=== PATIENT | male | born 1985 | race Caucasian/White ===

== ENCOUNTER 2017-10-03 13:22 | Emergency (ER) | payer OTHER ==
[~2017-10-03] VITALS: Ht 165.1 cm; Wt 86.0 kg
[2017-10-03] MEDS ORDERED: ABILIFY (13:40)
[2017-10-03 19:07] VITALS: BP 116/68
== END 2017-10-03 19:07 | disposition home or self-care (01) ==
LOC: ER 13:47
DX: R07.9 Chest pain, unspecified (principal); F31.9 Bipolar disorder, unspecified; F20.9 Schizophrenia, unspecified; Z88.6 Allergy status to analgesic agent
CPT/HCPCS: 71045; 93005; 99284

== ENCOUNTER 2019-03-07 12:31 | Emergency (ER) | payer SELFPAY ==
[~2019-03-07] VITALS: Ht 165.1 cm; Wt 83.0 kg
[~2019-03-07 12:31] MED LIST: ABILIFY
[2019-03-07] MEDS ORDERED: SODIUM CHLORIDE 0.9% 1,000 ML IV ONE (12:54)
[2019-03-07] MEDS ORDERED: ONDANSETRON HCL 4MG/2ML INJ IV STA (12:54)
[2019-03-07] MEDS ORDERED: FAMOTIDINE 20MG/2ML VIAL IV STA (12:54)
[2019-03-07 13:51] LABS: BASOPHILS % 0.3 % (0.0-2.0); EOSINOPHILS % 1.4 % (0.0-5.0); HEMATOCRIT. 43.5 % (42.0-52.0); HEMOGLOBIN. 14.8 g/dL (14.0-18.0); LYMPHOCYTES % 18.7 % (20.0-50.0); MEAN CORPUSCULAR HEMOGLOBIN 30.2 pg (28.0-32.0); MEAN CORPUSCULAR VOLUME 88.8 fL (80.0-94.0); MEAN PLATELET VOLUME 8.8 fl (7.4-10.4); MONOCYTES % 5.5 % (2.0-8.0); NEUTROPHILS % 74.1 % (40.0-76.0); PLATELET 223 x1000/uL (130-400); RED CELL DISTRIBUTION WIDTH 13.7 % (11.6-14.6)
[2019-03-07 13:57] LABS: CHLORIDE 104 mEq/L (98-107)
[2019-03-07 14:00] LABS: INR 1.1; PROTHROMBIN TIME 10.9 sec (9.6-11.0)
[2019-03-07 14:04] LABS: ETHANOL BLOOD < 10 mg/dL
[2019-03-07 14:52] LABS: CLARITY URINE CLEAR (CLEAR); COLOR URINE DARK YELLOW (YELLOW); KETONES URINE TRACE (NEGATIVE); LEUKOCYTE ESTERASE URINE TRACE (NEGATIVE); NITRITE URINE NEGATIVE (NEGATIVE); OCCULT BLOOD URINE NEGATIVE (NEGATIVE); PH URINE 5.5 (4.5-8.0); PROTEIN URINE NEGATIVE (NEGATIVE); SPECIFIC GRAVITY URINE 1.024 (1.005-1.030)
[2019-03-07 15:07] LABS: *AMPHETAMINES SCREEN URINE NEGATIVE (NEGATIVE); *BARBITURATES SCREEN URINE NEGATIVE (NEGATIVE); *BENZODIAZEPINES SCREEN URINE NEGATIVE (NEGATIVE)
[2019-03-07 15:08] LABS: *COCAINE SCREEN URINE PRESUMTIVE POSITIVE (NEGATIVE); CANNABINOID URINE SCREEN NEGATIVE (NEGATIVE); METHADONE URINE SCREEN NEGATIVE (NEGATIVE); OPIATES URINE SCREEN NEGATIVE (NEGATIVE); PHENCYCLIDINE URINE SCREEN NEGATIVE (NEGATIVE)
[2019-03-07 15:40] VITALS: BP 116/58
== END 2019-03-07 18:09 | disposition home or self-care (01) ==
LOC: ER 12:31
DX: K80.20 Calculus of gallbladder without cholecystitis without obstruction (principal); F14.10 Cocaine abuse, uncomplicated
CPT/HCPCS: 36415; 71045; 74181; 76705; 80053; 80305; 80320; 81003; 82962; 83690; 84484; 85025; 85610; 93005; 96374; 96375; 99284; J2405; J3490; J7030; G0480